=== PATIENT | male | born 1960 | race Caucasian/White ===

== ENCOUNTER → 2016-12-15 | Outpatient (CLI) | payer BC ==
[~2016-12-15] MED LIST: ADVAIR 5001 DISK W/D; AMOXICILLIN; SINGULAIR; ZYRTEC-D T1 TAB.SR .
[2016-12-15 10:25] LABS: POC - CREATININE 1.48 mg/dL (0.64-1.27)
== END | disposition home or self-care (01) ==
LOC: SCT 10:00
PROVIDERS: Specialist
DX: C02.9 Malignant neoplasm of tongue, unspecified (principal); Z53.9 Procedure and treatment not carried out, unspecified reason
CPT/HCPCS: 82565

== ENCOUNTER → 2016-12-16 | Outpatient (CLI) | payer BC ==
--- NOTE | ~2016-12-16 | CT114 ---
[facility]. [facility] A Service of [facility] RADIOLOGY TEXT RESULTS PATIENT: CAMILLA WHITLEY LOCATION: [facility] : 62 UNIT #: [id number] AGE: [address]: ELIOT TAN MD (INT MED) SEX: M ORDER DR: [id number] [place] [address] [id number] MR#: [id number] Acc #: [id number] NAME: CAMILLA WHITLEY : 1960 SEX: M STUDY DATE/TIME: 12/16/2016 9:25 UNIT: [facility] ROOM: STUDY DESCRIPTION: CT Soft Tissue Neck W Cont Attending Physician: Eliot Tan M.D. Ordering Physician: Eliot Tan M.D. Primary Care Physician: Eliot Tan M.D. MEDICAL IMAGING REPORT This report is preliminary unless electronic signature is present. EXAM CT of the neck soft tissue with contrast. DATE OF EXAM 12/16/2016 HISTORY Sore on tongue found July 2016, biopsied December 06, consistent with tongue cancer per patient. Right side, no palpable neck nodules or swelling to loki. Study performed with hydration and IV contrast. Patient's eGFR was 52 on 12/15/2016, 45 on 12/16/2016, so the hydration protocol was utilized. COMMENT CT of the neck soft tissue performed during the intravenous administration of 75 mL of Isovue 370, with imaging acquired in the axial plane followed by sagittal and coronal reconstructed images. COMPARISON There is no prior imaging of the soft tissue neck. TECHNIQUE NOTE: This CT exam was performed with one or more of the following radiation dose reduction techniques: automatic exposure control, adjustment of mA and/or kV according to patient size, and iterative reconstruction. FINDINGS Thyroid gland, submandibular glands, parotid glands unremarkable. There is no lymphadenopathy which meets anatomic imaging criteria for pathologic involvement. Increased number of lymph nodes noted in the upper chest, right paratracheal region, all less than a centimeter short axis dimension. There is some asymmetric soft tissue fullness at the right STS. [facility] A Service of [facility] RADIOLOGY TEXT RESULTS PATIENT: CAMILLA WHITLEY LOCATION: [facility] : 62 UNIT #: [id number] AGE: [address]: ELIOT TAN MD (INT MED) SEX: M ORDER DR: tongue base with some subtle asymmetric enhancement and this is probably the site of known tumor and recent biopsy. Direct visualization is better for assessment of the mucosal space. The epiglottis is well defined. Piriform sinuses are patent and symmetric. Nothing to suggest extension to the larynx. There is some stranding in the preepiglottic fat pad. Mild and nonspecific. The anterior aspect of the median glossal epiglottic fold is mildly thickened, also nonspecific. No additional area of possible mucosal asymmetry is seen. The patient has had cataract surgery bilaterally and if paranasal sinus disease with mucosal disease and evidence of prior paranasal sinus surgery consistent with at least bilateral uncinatectomies and partial ethmoidectomies. I suspect chronic sinusitis. No definite air-fluid level of this time. The mastoid air cells are clear. There are degenerative changes in the cervical spine. No erosion of the hyoid bone or thyroid cartilage is appreciated. Mild vascular calcifications noted at the carotid bifurcations. The lesion at the right tongue base is not discretely measureable. On the CT scan, I suspect that it is small. The somewhat nodular enhancement is about 9 mm, but this is fairly nonspecific and again the PET/CT would probably be helpful. IMPRESSION 1. Asymmetric fullness and enhancement of the right tongue base is consistent with site of known malignancy and recent biopsy. 2. There are no lymph nodes which meet anatomic imaging criteria for pathologic involvement. PET/CT is more sensitive for staging of head and neck cancer and would be recommended if clinically feasible. 3. Increased number of lymph nodes in the right paratracheal region, nonspecific since none of these has increased in size. 4. Extensive paranasal sinus disease with evidence of prior paranasal sinus surgery. Findings are suggestive of chronic sinusitis with mucosal disease and sinus opacification. 5. Cervical spine degenerative changes. Dictated by... Dottie Nance M.D. THIS IS AN ELECTRONICALLY VERIFIED REPORT Dottie Nance M.D. at 12/17/2016 7:25 AM [facility] TD: 12/16/2016 18:37 JOB #: [id number] MEDICAL IMAGING REPORT Page 1 of 1
[2016-12-16 08:10] LABS: POC - CREATININE 1.7 mg/dL (0.64-1.27)
== END | disposition home or self-care (01) ==
LOC: SCT 07:45
PROVIDERS: Internal Medicine
DX: C02.9 Malignant neoplasm of tongue, unspecified (principal); J34.89 Other specified disorders of nose and nasal sinuses; M47.812 Spondylosis without myelopathy or radiculopathy, cervical region; Z98.890 Other specified postprocedural states
CPT/HCPCS: 70491; 82565; Q9967

== ENCOUNTER → 2016-12-28 | Outpatient (CLI) | payer BC ==
--- NOTE | ~2016-12-28 | EKG ---
PATIENT: CAMILLA WHITLEY UNIT #: [id number] Ventricular Rate: 46 BPM Atrial Rate: 46 BPM P-R Interval: 120 ms QRS Duration: 110 ms Q-T Interval: 426 ms QTC Calculation(Bezet): 372 ms P [place]: 33 degrees Calculated R [place]: 43 degrees Calculated T [place]: 46 degrees Diagnosis Line: Marked sinus bradycardia Diagnosis Line: RSR' or QR pattern in V1 suggests right Diagnosis Line: ventricular conduction delay Diagnosis Line: Otherwise normal ECG Diagnosis Line: When compared with ECG of 18-JAN-2014 13:11, Diagnosis Line: No significant change was found Diagnosis Line: Confirmed by SANFORD LAFLEUR MD ([id number]) on 12/29/2016 Diagnosis Line: 9:36:57 AM INTERPRETING MD: CIARRA CELESTIN
[2016-12-28 10:17] LABS: HEMATOCRIT 44.5 % (38.0-50.0); HEMOGLOBIN 14.9 gm/dL (13.0-16.0); MEAN CELL VOLUME 88.3 FL (83-96); MEAN CORPUSCULAR HEMOGLOBIN 29.6 PG (28-34); MEAN CORPUSCULAR HGB CONC 33.6 g/dL (30-36); MEAN PLATELET VOLUME 8.5 FL (6.5-11.5); RED BLOOD COUNT 5.04 X10e (3.90-5.60); RED CELL DISTRIBUTION WIDTH 13.7 % (11.0-15.5); WHITE BLOOD COUNT 6.5 X10e3 (4.0-10.5)
[2016-12-28 10:25] LABS: BUN/CREATININE RATIO 12.72; CALCIUM SERUM 9.2 mg/dL (8.4-10.2); CREATININE SERUM 1.1 mg/dL (0.6-1.4); GLOM FILT RATE Estimated 75.2 mL/min (>60)
== END | disposition home or self-care (01) ==
LOC: SLAB 09:46
PROVIDERS: Internal Medicine Medical Oncology
DX: Z01.818 Encounter for other preprocedural examination (principal); C02.9 Malignant neoplasm of tongue, unspecified
CPT/HCPCS: 36415; 80048; 85027; 93005